=== PATIENT | male | born 1985 | race Two or more races ===

== ENCOUNTER 2016-06-22 14:12 | Inpatient (IN) | payer OTHER ==
[~2016-06-22] VITALS: Ht 170.2 cm; Wt 147.3 kg
--- NOTE | ~2016-06-22 | HP ---
PATIENT'S NAME: MAI SEYMOUR [facility] AGE: 30 Y [address] ROOM: [address] [address] LOCATION: [facility] [place] ADMIT DATE: 06/22/2016 History & Physical DISCHARGE DATE: FAMILY PHYSICIAN: Aleks Tam MD ATTENDING PHYSICIAN: Aleks Tam DATE OF SERVICE: CHIEF COMPLAINT: Cellulitis of scalp. HISTORY OF PRESENT ILLNESS: The patient is a 30-year-old male, who was first presented and seen in clinic on June 20, 2016. He had evidence of cellulitis of the scalp overlying the occiput. He shaved his head and has a history of folliculitis in the past. He reports his daughter recently had MRSA. The skin infection on the back of his scalp was very swollen and painful. I was able to get enough drainage when I examined him in clinic on June 20, 2016 to do wound culture. I tried to do an incision and drainage in clinic of the right side of the area in question, as it had a small pinpoint area that already opened up and was draining a small amount. I was unable to express much drainage at all. I gave him 1 g of IM Rocephin and started him on a course of p.o. Bactrim DS one p.o. b.i.d. for 10 days. He returns to clinic today stating that it is worse. The area is now more swollen and more tender. He has a headache and difficulty turning his head due to the pain in the scalp. The culture did come back positive for MRSA. REVIEW OF SYSTEMS: GENERAL: Low-grade temp, no chills. No nausea or vomiting. HEENT: He has a headache and neck pain. Limited range of motion of his neck due to pain. Denies any sore throat, runny nose, earache, or nasal congestion. RESPIRATORY: Denies any chest pain or shortness of breath. GASTROINTESTINAL: Denies any nausea or vomiting. Denies any changes to his bowel or bladder. PAST MEDICAL HISTORY: GERD, obesity, sleep apnea, wears a CPAP. PAST SURGICAL HISTORY: History of kidney stone removal with stent placement. MEDICATIONS: 1. Bactrim DS one p.o. b.i.d. for 10 days. 2. Lexapro 10 mg daily. PATIENT'S NAME: MAI SEYMOUR [facility] AGE: 30 Y [address] ROOM: [address] [address] LOCATION: [facility] [place] ADMIT DATE: 06/22/2016 History & Physical DISCHARGE DATE: FAMILY PHYSICIAN: Aleks Tam MD ATTENDING PHYSICIAN: Aleks Tam 3. Meloxicam 15 mg daily. 4. Nystatin powder t.i.d. p.r.n. 5. Ultram 50 mg 1-2 p.o. q.4-6 hours p.r.n. pain. 6. [place] topical ointment b.i.d. p.r.n. ALLERGIES: NONE. SOCIAL HISTORY: Nonsmoker. Lives at home with his and 3 daughters. Works as a [employer] mechanic. PHYSICAL EXAMINATION: VITAL SIGNS: Blood pressure 132/72, temp 99.9, heart rate 86, respiratory rate 20, weight 333 pounds, height 5 feet 7 inches, and BMI 52. GENERAL: He is awake, alert, and oriented. He appears as though does not feel well but in no acute distress. HEENT: Eyes: Conjunctivae clear. EARS: Both TMs visualized, normal in appearance. Nares: Patient without rhinorrhea. Mouth: Mucous membranes moist. No tonsillar enlargement or exudate. NECK: Supple without lymphadenopathy. HEART: Regular rate and rhythm without murmur. LUNGS: Clear to auscultation throughout. No crackles or wheezing noted. ABDOMEN: Obese soft, nontender, nondistended. No masses palpated. No guarding or rebound tenderness. SKIN: On the back of the scalp, there is an area 10 cm x 5 cm oval shaped, horizontally oriented, that has induration, swelling, redness, and warmth. There are 2 small pinpoint areas of crusted over drainage, one on the right and one on the left. The area on the right, I cleansed with Betadine x3. Infiltrated with 1 mL of 1% lidocaine with epinephrine. A 10-blade scalpel was used to make a 1 cm incision of appropriate depth. Only a small amount of purulent drainage was drained. ASSESSMENT AND PLAN: Folliculitis. This led to cellulitis of the posterior scalp with methicillin- resistant staphylococcus aureus-positive culture. He has a low-grade temp 99.9. No improvement with outpatient treatment since Thursday with one dose of IM Rocephin and starting p.o. Bactrim. I am unable to incise and drain much at all today. He is quite uncomfortable with this swelling causing him headache and limited range of motion with his neck. I am going to get a CT of the soft tissues of the scalp to ensure that this is a superficial process. I will start him on IV vancomycin. Zofran 4 mg IV q.4 hours p.r.n. nausea, vomiting. We will have ibuprofen and hydrocodone available for pain. We will get a CBC, BMP, and CRP on admit and repeat in the morning. He does have a history of sleep apnea and continues on CPAP with home settings. His primary PATIENT'S NAME: MAI SEYMOUR [facility] AGE: 30 Y [address] ROOM: [place] [address] LOCATION: [facility] [place] ADMIT DATE: 06/22/2016 History & Physical DISCHARGE DATE: FAMILY PHYSICIAN: Aleks Tam MD ATTENDING PHYSICIAN: Aleks Tam physician is Dr. Aleks Tam, and I will advise Dr. Tam's of his admission tomorrow morning. MD DOUG SANTILLAN/modl /[id number] D: T: [id number] HISTORY & PHYSICAL
--- NOTE | ~2016-06-22 | DS ---
PATIENT'S NAME: MAI SEYMOUR [facility] AGE: 30 Y [address] ROOM: [address] [address] LOCATION: [facility] [place] ADMIT DATE: 06/22/2016 Discharge Summary DISCHARGE DATE: 06/23/2016 FAMILY PHYSICIAN: Gumaro Tam MD ATTENDING PHYSICIAN: Gumaro Tam DISCHARGE DIAGNOSIS: Cellulitis. DISCHARGE MEDICATIONS: 1. Tramadol 50 mg 1 or 2 tablets every 6 hours as needed. 2. Bactrim Double Strength 1 tablet twice daily. 3. Meloxicam 15 mg daily. 4. Tylenol 500 mg 1 or 2 tablets every 8 hours as needed. 5. [place] 5/325 one or two tablets every 6 hours as needed, #20 given. HPI: Please see history and physical dictated by Dr. Dinh. HOSPITAL COURSE: The patient was admitted to the hospital and placed on vancomycin 2 g IV every 12 hours and he had dramatic improvement in his cellulitis. Decreased erythema and is afebrile. Overall, he is doing very well. He is tolerating regular diet. Denied any headache or other complaints. The patient was discharged home in stable condition. Appropriate followup was in place. LABORATORY DATA AND X-RAYS: Please see chart for details. GUMARO TAM MD CSM/modl /[id number] d: 07/15/16 2351 t: 07/28/16 2317, DISCHARGE SUMMARY
[2016-06-22] MEDS ORDERED: NYSTATIN1 EAC2 TOP (14:55)
[2016-06-22] MEDS ORDERED: BACTRIM DS1 TAB PO (14:55)
[2016-06-22] MEDS ORDERED: ULTRAM50 MG PO (14:56)
[2016-06-22] MEDS ORDERED: MOBIC15 MG PO (14:56)
[2016-06-22] MEDS ORDERED: TYLENOL EXTRA500 MG PO (14:57)
--- NOTE | 2016-06-22 15:12 | NUR ---
Patient is a 30 year old male admitted with cellulitis of his scalp, it is open and it is MRSA. Placed in Contact isolation. States he has been having this problem since Thursday and he went to the clinic at that time and was placed on antibiotics. He went back today and it was not better and Dr. Dinh drained it again. Admitted to the hopsital for antibiotics. Recently had an eye infection and hemmorhoid. Had loose stools while on the antibiotics. HX of eye infection, arthritis in his back, head injury in 2005 and eye infection. Is alert and oriented x3. accompained the patient.
[2016-06-22 16:13] LABS: BASOPHIL # 0.1 K/uL (0.0-0.2); BASOPHIL % 0.7 %; EOSINOPHIL # 0.2 K/uL (0.0-0.5); EOSINOPHIL % 1.2 %; HEMATOCRIT 46.5 % (37.0-53.0); HEMOGLOBIN 15.7 g/dL (12.0-17.0); IMMATURE GRANULOCYTE # 0.1 K/uL (0.0-0.3); IMMATURE GRANULOCYTE % 0.4 %; LYMPHOCYTE # 2.4 K/uL (0.8-4.0); LYMPHOCYTE % 17.7 %; MCH 29.6 pg (27.0-34.0); MCHC 33.8 gm/dL (32.0-36.5); MCV 87.6 fl (83.0-98.0); MONOCYTE # 0.9 K/uL (0.0-1.0); MONOCYTE % 6.8 %; MPV 10.8 fl (9.4-12.4); NEUTROPHIL # (ANC) 9.9 K/uL (1.4-9.0); NEUTROPHIL % 73.2 %; NRBC % 0 /100WBC (0-0.00); PLATELET COUNT 256 K/uL (150-450); RBC 5.31 M/uL (4.00-6.00); RDW-CV 12.7 % (11.9-14.6); WBC 13.5 K/uL (4.0-11.0)
[2016-06-22 16:26] LABS: ANION GAP 11.3 (10.0-19.0); BLOOD UREA NITROGEN 9 mg/dL (6-24); CALCIUM 8.8 mg/dL (8.5-10.5); CHLORIDE 107 mMol/L (96-110); CO2 26 mMol/L (22-32); CREATININE 0.8 mg/dL (0.6-1.3); ESTIMATED GFR (MDRD EQUATION) > 60; POTASSIUM 4.3 mMol/L (3.7-5.1); SODIUM 140 mMol/L (135-145)
--- NOTE | 2016-06-22 16:44 | NUR ---
Significant Event: Patient is alert and oriented x3. VSS and on RA. 2 norco given around 1609. Vancomycin hung at that time. IV in the R)wrist/hand, 20 gauge. Good blood return. Up with SBA. CT of his head planned, waiting for his GFR results. VS routine. Regular diet. CPAP at home settings for NOC. Cooperative with cares. Contact isolation. at the bedside.
--- NOTE | 2016-06-23 04:57 | NUR ---
Significant Event: Pt is alert and oriented. VSS on RA. Up ad je in room. IV to the R)hand good blood return with intermittent antibiotics. Contact isolation for cellulitis of the head, sore on the back of head. [place] given x2 last at 0006. CT on the head done at begining of shift. Follow Up: Continue to monitor.
[2016-06-23 05:10] LABS: BASOPHIL # 0.1 K/uL (0.0-0.2); BASOPHIL % 0.7 %; EOSINOPHIL # 0.4 K/uL (0.0-0.5); EOSINOPHIL % 3.2 %; HEMATOCRIT 43.3 % (37.0-53.0); HEMOGLOBIN 14.7 g/dL (12.0-17.0); IMMATURE GRANULOCYTE # 0.1 K/uL (0.0-0.3); IMMATURE GRANULOCYTE % 0.5 %; LYMPHOCYTE # 3.1 K/uL (0.8-4.0); LYMPHOCYTE % 27.6 %; MCH 29.7 pg (27.0-34.0); MCHC 33.9 gm/dL (32.0-36.5); MCV 87.5 fl (83.0-98.0); MONOCYTE % 8.6 %; MPV 10.7 fl (9.4-12.4); NEUTROPHIL # (ANC) 6.7 K/uL (1.4-9.0); NEUTROPHIL % 59.4 %; NRBC % 0 /100WBC (0-0.00); PLATELET COUNT 237 K/uL (150-450); RBC 4.95 M/uL (4.00-6.00); RDW-CV 12.6 % (11.9-14.6); WBC 11.3 K/uL (4.0-11.0)
[2016-06-23 05:23] LABS: ANION GAP 10.8 (10.0-19.0); BLOOD UREA NITROGEN 12 mg/dL (6-24); CHLORIDE 106 mMol/L (96-110); CO2 25 mMol/L (22-32); CREATININE 0.7 mg/dL (0.6-1.3); ESTIMATED GFR (MDRD EQUATION) > 60; POTASSIUM 3.8 mMol/L (3.7-5.1); SODIUM 138 mMol/L (135-145)
--- NOTE | 2016-06-23 15:25 | NUR ---
Attempted to see patient 4 times today but always busy. Will try again tomorrow.
--- NOTE | 2016-06-23 19:39 | NUR ---
Significant Event: Patient alert and oriented. Patient states having discomfort to the back of his head and rating it at 2-3 and has refused need for pain meds. Some redness and a hard area approximately the size of an egg to the back of his head with a small open area that is draining a scant amount of serous drainage. New saline lock to his R) posterior forearm for IV Vancomycin. Up ad je in the room. Follow up:
[2016-06-23] MEDS ORDERED: NORCO 5-325 TA1 EACH PO (19:44)
== END 2016-06-23 20:40 | disposition disaster alternative care site (69) | DRG 603 ==
LOC: GMSU 14:12
PROVIDERS: ADMIT Family Medicine
PROC: 0H90XZZ Drainage of Scalp Skin, External Approach (ICD-10-PCS; principal; 2016-06-22)
DX: L03.811 Cellulitis of head [any part, except face] (principal); Z68.43 Body mass index [BMI] 50.0-59.9, adult; B95.62 Methicillin resistant Staphylococcus aureus infection as the cause of diseases classified elsewhere; L73.9 Follicular disorder, unspecified; E66.9 Obesity, unspecified; G47.33 Obstructive sleep apnea (adult) (pediatric); K21.9 Gastro-esophageal reflux disease without esophagitis; Z87.442 Personal history of urinary calculi
CPT/HCPCS: J3370; J7040

== ENCOUNTER 2016-09-02 09:05 | Emergency (ER) | payer OTHER ==
--- NOTE | ~2016-09-02 | ER ---
PATIENT'S NAME: MAI SEYMOUR [facility] AGE: 30 Y [address] ROOM: [place] [address] LOCATION: [facility] ADMIT DATE: 09/02/2016 ER/Outpatient Report DISCHARGE DATE: 09/02/2016 FAMILY PHYSICIAN: Aleks Tam MD ATTENDING PHYSICIAN: Mehdi Mcduffie CHIEF COMPLAINT: Right wrist pain. HISTORY OF PRESENT ILLNESS: The patient was at work today at [employer] when an accident occurred, which caused him to have compression of an extended wrist. He felt a pop, and he has had significant pain in the area since then. He denies any other issues. No other areas of pain or injury. This did happen at work. He is without any other concerns today. He denies any major medical issues. ALLERGIES: NONE. MEDICATIONS: 1. Meloxicam. 2. Tramadol. PAST SURGICAL HISTORY: The patient has had a few surgeries in the past. SOCIAL HISTORY: He uses social alcohol. Denies smoking. Lives in [place]. Works in [place]. PHYSICAL EXAMINATION: VITAL SIGNS: Blood pressure 175/76, pulse 88, respiratory rate 16, temperature 98.9, SpO2 is 97% on room air. Pain is 10/10. GENERAL: An age-appropriate male, in no obvious distress, in obvious moderate pain, resting recumbent with his right hand across the chest. NEUROLOGIC: Awake and alert. GCS 15. No focal deficits. No asymmetry. HEENT: Normocephalic, atraumatic. Eyes are PERRL. Oropharynx is clear. NECK: Supple. Trachea is midline. CHEST: Heart is regular rate and rhythm with no murmurs. LUNGS: Clear to auscultation bilateral. No rhonchi, wheezes, or rales. ABDOMEN: Soft, obese, nontender. No rebound or guarding. No tenderness. BACK: Normal to inspection. EXTREMITIES: Grossly unremarkable except for the right wrist. There is some tenderness over the right distal radius with this scant area of ecchymosis and edema. The patient is able to activate extensors of the thumb, flexors of the PATIENT'S NAME: MAI SEYMOUR [facility] AGE: 30 Y [address] ROOM: [place] [address] LOCATION: [facility] ADMIT DATE: 09/02/2016 ER/Outpatient Report DISCHARGE DATE: 09/02/2016 FAMILY PHYSICIAN: Aleks Tam MD ATTENDING PHYSICIAN: Mehdi Mcduffie. He is able to make an okay sign, and touch his thumb and pinky fingers together, and endorses normal sensation throughout with brisk capillary refill. He is markedly limited by pain. Axial loading of the thumb does not produce significant pain. There is no piano wesley sign. LABORATORY DATA AND X-RAYS: X-rays of the right wrist reveal a distal radius fracture involving the distal articular surface on the radial aspect. There is minimal displacement and dislocation. No obvious scaphoid fractures. No other abnormalities. IMPRESSION: Right distal radius fracture with articular surface involvement. EMERGENCY DEPARTMENT COURSE: The patient was seen and evaluated as above. With the bone retaining significant appropriate alignment, simple splint is appropriate. I did contact Dr. Louis, orthopedic surgeon, made him aware of the type of fracture and his current presentation. He is requesting splinting and close followup. The patient was given [place] for his pain and a simple sugar-tong splint was placed. Making sure to keep the hand in a neutral position, slightly extended with a neutral thumb. Careful padding was placed to all bony prominences. Ten layers of plaster were used to ensure that there would be no burning. The plaster was molded and ensured to be firm. The patient was instructed to keep the splint clean and dry, and to see Dr. Louis in clinic later this week. Work with no use of his right arm, to be off today. Return as needed. [place] as needed for breakthrough pain, otherwise Tylenol is appropriate. MEHDI MCDUFFIE MD J[facility]/modl /[id number] d: 09/02/162321 t: 09/03/16 1012, OUTPATIENT REPORT
[~2016-09-02 09:05] MED LIST: BACTRIM DS1 TAB PO; MOBIC15 MG PO; NORCO 5-325 TA1 EACH PO; NYSTATIN1 EAC2 TOP; TYLENOL EXTRA500 MG PO; ULTRAM50 MG PO
== END 2016-09-02 09:59 | disposition disaster alternative care site (69) ==
LOC: GACC 09:05
PROC: 2W3EX1Z Immobilization of Right Hand using Splint (ICD-10-PCS; principal; 2016-09-02)
DX: S52.571A Other intraarticular fracture of lower end of right radius, initial encounter for closed fracture (principal); Z79.899 Other long term (current) drug therapy; Z87.442 Personal history of urinary calculi; Z98.890 Other specified postprocedural states; X58.XXXA Exposure to other specified factors, initial encounter; Y92.69 Other specified industrial and construction area as the place of occurrence of the external cause; Y99.0 Civilian activity done for income or pay